=== PATIENT | female | born 1950 | race Caucasian/White ===

== ENCOUNTER 2019-04-25 07:05 | Day surgery (SDC) | payer OTHER | END 2019-04-25 13:05 | disposition home or self-care (01) | LOC: AMB-ENDOS 07:05 | DX: K31.89 Other diseases of stomach and duodenum (principal); K29.50 Unspecified chronic gastritis without bleeding ==

== ENCOUNTER 2019-11-07 10:00 | Day surgery (SDC) | payer OTHER | END 2019-11-07 15:10 | disposition home or self-care (01) | LOC: AMB-ENDOS 10:00 | PROVIDERS: ATTEND Colon & Rectal Surgery | DX: K62.89 Other specified diseases of anus and rectum (principal); K64.2 Third degree hemorrhoids; Z20.828 Contact with and (suspected) exposure to other viral communicable diseases ==